=== PATIENT | male | born 1975 | race African-American/Black ===

== ENCOUNTER 2023-03-26 15:18 | Emergency (ER) | payer MEDICAID, OTHER ==
[~2023-03-26] VITALS: Ht 193 cm; Wt 68.0 kg
[2023-03-26 15:47] VITALS: BP 139/85; PULSE 106; RESP 18; TEMP 98.5; O2SAT 100
[2023-03-26] MEDS ORDERED: PREDNISONE 20MG TABLET PO ONE (18:15)
[2023-03-26] MEDS ORDERED: P50 MT (18:22)
[2023-03-26] MEDS ORDERED: TRIA15CR61 TP (18:22)
== END 2023-03-26 19:11 | disposition home or self-care (01) ==
LOC: ER 15:18
DX: L30.9 Dermatitis, unspecified (principal)
CPT/HCPCS: 99283; J7512; Z7610